=== PATIENT | female | born 1990 | race Two or more races ===

== ENCOUNTER 2022-10-04 13:21 | Emergency (ER) | payer MEDICAID ==
[~2022-10-04] VITALS: Ht 160 cm; Wt 81.0 kg
[2022-10-04 14:11] VITALS: BP 145/93
[2022-10-04] MEDS ORDERED: SUMAtriptan SUCCINATE 6 MG/0.5 ML VL SC ONE (14:15)
[2022-10-04] MEDS ORDERED: ONDANSETRON ODT 4 MG TAB PO ONE (14:15)
[2022-10-04] MEDS ORDERED: METOCLOPRAMIDE HCL 10 MG TAB PO ONE (16:15)
[2022-10-04] MEDS ORDERED: HYDROmorphone HCL 2 MG/ML VL/or syr IM ONE (16:15)
[2022-10-04] MEDS ORDERED: ONDA-144 PO (20:50)
[2022-10-04] MEDS ORDERED: SUMA50TA2 PO (20:50)
== END 2022-10-04 21:40 | disposition home or self-care (01) ==
LOC: ER 13:21
DX: R51.9 Headache, unspecified (principal)
CPT/HCPCS: 96372; 99283; J3030; Q0162